=== PATIENT | male | born 1955 | race Caucasian/White ===

== ENCOUNTER 2016-05-06 20:39 | Emergency (ER) | payer BC ==
[2016-05-06] MEDS ORDERED: ADVIL200 M2 PO (21:03)
[2016-05-06] MEDS ORDERED: ASPIRIN81 M1 PO (21:04)
[2016-05-06] MEDS ORDERED: MULTIVITAMINS1 EAC6 PO (21:04)
[2016-05-06] MEDS ORDERED: FISH OIL 11000 MG/CA PO (21:05)
[2016-05-06] MEDS ORDERED: SLEEPING PILL (21:07)
[2016-05-06 22:12] LABS: HCT-HEMATOCRIT 41.9 % (36.0-53.5); HGB-HEMOGLOBIN 14.5 gm/dl (13.5-17.0); MCH (MEAN CORPUSCULAR HGB) 29.8 pg (28.0-32.0); MCHC MEAN CORPUSCULAR HGB CONC 34.6 % (32.0-36.0); MCV (MEAN CELL VOLUME) 86.2 fl (82.0-96.0); MEAN PLATELET VOLUME 9.2 cmc (9.4-12.4); NEUTROPHIL-AUTOMATED 8.4 tho/cmm (1.6-8.0); PLATELET COUNT 216 tho/cmm (150-450); RED BLOOD COUNT 4.86 mil/cmm (4.40-5.70); WHITE BLOOD COUNT 10.9 tho/cmm (4.0-10.0)
[2016-05-06 22:13] LABS: BASO % 0.5 % (0-2); BASO ABSOLUTE COUNT 0.1 tho/cmm (0.0-0.2); EOS % 1.1 % (0-7); EOSINOPHIL ABSOLUTE COUNT 0.1 tho/cmm (0.0-0.7); IMMATURE GRANULOCYTES ABSOLUTE 0.73 tho/cmm (0-0.03); IMMATURE GRANULOCYTES PERCENT 6.7 % (0-0.3); LYMPH % 9.4 % (20-45); MONO % 5.6 % (0-12); MONOCYTE ABSOLUTE COUNT 0.6 tho/cmm (0.0-1.2); NEUTROPHIL ABSOLUTE COUNT 8.4 tho/cmm (1.6-8.0); NEUTROPHILS % 76.7 % (40-80)
[2016-05-06 22:53] LABS: ALBUMIN 3.6 g/dl (3.5-5.0); ALKALINE PHOSPHATASE 87 U/L (33-138); ALT/SGPT 31 U/L (12-78); ANION GAP 11 mmol/L (0-20); AST/SGOT 76 U/L (10-40); BILIRUBIN,TOTAL 0.6 mg/dl (0.0-1.5); BLOOD UREA NITROGEN 20 mg/dl (6-24); CALCIUM 8.8 mg/dl (8.5-10.5); CARBON DIOXIDE-VENOUS 29 mmol/L (22-32); CHLORIDE 106 mmol/l (96-110); CREATININE 1.13 mg/dl (0.60-1.30); GLUCOSE 143 mg/dL (70-110); MAGNESIUM 2.3 mg/dl (1.3-2.6); SODIUM 142 mmol/L (135-145); eGFR VALUE FOR BLACK 83 mL/Min
[2016-05-06 22:55] LABS: PROCALCITONIN 0.31 ng/ml (0.05-0.09)
[2016-05-06 22:57] LABS: TSH-THYROID STIMULATING HORM. 1.47 uIU/ml (0.40-3.80)
[2016-05-06 23:24] LABS: URINE BILIRUBIN NEGATIVE (NEG); URINE BLOOD NEGATIVE (NEG); URINE GLUCOSE (UA) NEGATIVE (NEG); URINE KETONE NEGATIVE (NEG); URINE LEUKOCYTE ESTERASE NEGATIVE (NEG); URINE NITRITE NEGATIVE (NEG); URINE PROTEIN NEGATIVE (NEG)
[2016-05-06 23:30] LABS: URINE APPEARANCE CLEAR; URINE COLOR YELLOW
[2016-05-07] MEDS ORDERED: ZOFRAN4 M2 PO (00:08)
[2016-05-07] MEDS ORDERED: TRAMADOL HCL50 M2 PO (00:08)
[2016-05-13] MEDS ORDERED: MULTIVITAMINS1 EAC6 PO (17:43)
[2016-05-13] MEDS ORDERED: FISH OIL 1,0001 EAC6 PO (17:44)
[2016-05-13] MEDS ORDERED: ULTRAM50 M1 PO (17:44)
[2016-05-13] MEDS ORDERED: IBUPROFEN200 M2 PO (17:45)
[2016-05-13] MEDS ORDERED: ASPIRIN81 M1 PO (17:45)
[2016-05-13] MEDS ORDERED: ZOFRAN4 M2 PO (17:46)
[2016-05-13] MEDS ORDERED: HYDROCODON-ACE1 EA16 PO (17:47)
[2016-05-13] MEDS ORDERED: ASMANEX HFA13 G1 INH (17:48)
== END 2016-05-07 00:26 ==
LOC: EDMED 20:39
PROVIDERS: Emergency Medicine
DX: M25.50 Pain in unspecified joint (principal); M79.1 Myalgia; R50.9 Fever, unspecified; J45.909 Unspecified asthma, uncomplicated
CPT/HCPCS: J7030; Q9967

== ENCOUNTER 2016-05-18 08:19 | Day surgery (SDC) | payer BC ==
[~2016-05-18 08:19] MED LIST: ADVIL200 M2 PO; ASMANEX HFA13 G1 INH; ASPIRIN81 M1 PO; FISH OIL 1,0001 EAC6 PO; FISH OIL 11000 MG/CA PO; HYDROCODON-ACE1 EA16 PO; IBUPROFEN200 M2 PO; MULTIVITAMINS1 EAC6 PO; SLEEPING PILL; TRAMADOL HCL50 M2 PO; ULTRAM50 M1 PO; ZOFRAN4 M2 PO
[2016-05-19 07:27] LABS: BODY FLUID TYPE CSF
== END 2016-05-18 13:10 ==
LOC: CARD 08:19 → SHSA 08:50
PROVIDERS: Internal Medicine Hematology & Oncology
PROC: 3E0R305 Introduction of Other Antineoplastic into Spinal Canal, Percutaneous Approach (ICD-10-PCS; principal; 2016-05-18)
PROC: 009U3ZX Drainage of Spinal Canal, Percutaneous Approach, Diagnostic (ICD-10-PCS; 2016-05-18)
PROC: B01BZZZ Fluoroscopy of Spinal Cord (ICD-10-PCS; 2016-05-18)
DX: C83.34 Diffuse large B-cell lymphoma, lymph nodes of axilla and upper limb (principal); J45.909 Unspecified asthma, uncomplicated; Z79.82 Long term (current) use of aspirin; Z79.899 Other long term (current) drug therapy; Z88.5 Allergy status to narcotic agent; Z98.52 Vasectomy status; Z98.890 Other specified postprocedural states
CPT/HCPCS: J7030; J9260